=== PATIENT | male | born 1940 | race Caucasian/White ===

== ENCOUNTER 2022-10-15 16:44 | Inpatient (IN) | payer MEDICARE, OTHER ==
[~2022-10-15] VITALS: Ht 177.8 cm; Wt 82.7 kg
[~2022-10-15 16:44] MED LIST: ASPIRIN 81M81 MG/TA2 PO; COREG 6.256.25 MG/TA PO; DEMADEX 20MG20 M1 PO; FLOMAX 0.40.4 MG/CAP PO; GLUCOPHAGE500 MG/TAB PO; GLUCOTROL10 MG PO; IRON TABLETS325 MG PO; LIPITOR 40MG TA40 MG PO; MULTI-VITAMIN W1 TA1 PO; NORVASC 5MG5 MG/TAB PO; OCUVITE BLUE L1 EACH PO; PRINIVIL5 MG PO; PROCRIT 4,04 MU/VIAL SQ; SODIUM BICARBO650 MG PO; TIROSINT75 MC1 PO; VOLTAREN 75 DR75 MG PO; ZYLOPRIM 300MG300 MG PO
[2022-10-15 17:06] LABS: BASO # 0.1 K/mm3 (0.0-0.2); BASO % 1.8 % (0.0-2.0); EOS # 0.1 K/mm3 (0.0-0.7); EOS % 1.7 % (0.0-4.0); GRAN # 5.3 K/mm3 (1.4-6.5); GRAN % 72.6 % (42.2-75.2); LYMPH # 1.1 K/mm3 (1.2-3.4); LYMPH % 14.5 % (20.0-51.0); MEAN CELL VOLUME 98 fl (80.0-100.0); MEAN CORPUSCULAR HGB CONC 32 g/dl (33.0-37.0); MEAN PLATELET VOLUME 11.7 fl (7.4-10.4); MONO # 0.6 K/mm3 (0.1-0.6); MONO % 8.7 % (1.7-9.3); PLATELET COUNT 267 K/mm3 (130-400); RED BLOOD COUNT 3.05 M/mm3 (4.20-5.60); REDCELL DISTRIBUTION WIDTH-CV 16.2 % (11.5-14.5)
[2022-10-15 17:07] LABS: HEMOGLOBIN 9.7 g/dl (13.5-18.0); MEAN CORPUSCULAR HEMOGLOBIN 32 pg (27-31)
[2022-10-15 17:13] LABS: INR 1.4 (0.8-3.0); PROTHROMBIN TIME 15.8 SECONDS (9.7-12.8)
[2022-10-15 17:15] LABS: PARTIAL THROMBOPLASTIN TIME 34.2 SECONDS (26.0-37.0)
[2022-10-15 17:25] LABS: ALBUMIN 3.7 gm/dL (3.4-4.8); CALCIUM 9.4 mg/dL (8.4-10.2); CREATININE, serum 1.71 mg/dL (0.72-1.25); POTASSIUM 4.2 mmol/L (3.5-4.5); TOTAL PROTEIN 7.2 gm/dL (6.2-8.1)
[2022-10-15 17:31] LABS: TROPONIN-I 0.015 ng/mL (0.00-0.033)
[2022-10-15] MEDS ORDERED: NATURAL IRON65 MG (19:09)
[2022-10-15] MEDS ORDERED: GLUCOTROL10 MG PO (19:10)
[2022-10-15] MEDS ORDERED: GLUCOPHAGE1000 MG PO (19:12)
[2022-10-15 19:41] VITALS: BP 144/104; PULSE 95; TEMP 97.5
[2022-10-16] VITALS (9 sets, daily range): BP systolic 104–146; BP diastolic 46–73; PULSE 56–77; TEMP 97.5–98
[2022-10-16 07:01] LABS: BASO # 0.1 K/mm3 (0.0-0.2); BASO % 2.1 % (0.0-2.0); EOS # 0.2 K/mm3 (0.0-0.7); GRAN # 4.1 K/mm3 (1.4-6.5); GRAN % 67.7 % (42.2-75.2); LYMPH # 1.1 K/mm3 (1.2-3.4); LYMPH % 17.7 % (20.0-51.0); MEAN CELL VOLUME 94 fl (80.0-100.0); MEAN CORPUSCULAR HGB CONC 34 g/dl (33.0-37.0); MEAN PLATELET VOLUME 11.9 fl (7.4-10.4); MONO # 0.5 K/mm3 (0.1-0.6); MONO % 8.7 % (1.7-9.3); PLATELET COUNT 268 K/mm3 (130-400); RED BLOOD COUNT 2.91 M/mm3 (4.20-5.60); REDCELL DISTRIBUTION WIDTH-CV 15.8 % (11.5-14.5)
[2022-10-16 07:03] LABS: HEMATOCRIT 27.2 % (42.0-52.0); HEMOGLOBIN 9.3 g/dl (13.5-18.0); MEAN CORPUSCULAR HEMOGLOBIN 32 pg (27-31)
[2022-10-16 07:14] LABS: CREATININE, serum 1.52 mg/dL (0.72-1.25); MAGNESIUM 1.7 mg/dL (1.6-2.6); POTASSIUM 3.8 mmol/L (3.5-4.5)
--- NOTE | 2022-10-16 09:57 | NUR ---
Initial visit; Patient thanked Automotive Assembler for looking in on him and offering God's blessings.
--- NOTE | 2022-10-16 14:27 | NUR ---
patient arrived to photographic laboratory technician,expressing concerns of low blood sugar, patient was diaphoretic, hot and clammy. BG taken with results of 37. Dr. Ba notified, with TORB to give an amp of D50. Followed by D5W1/5NS for fluids to be hung at 100ml\hr for procedure, with recheck on BG in 15 min. Recheck was 151. Patient remained alert and oriented X4, resting in bed peacefully, and returned to normal status.
--- NOTE | 2022-10-16 14:41 | NUR ---
ALANA met with the patient's , Maliha (ph#[phone]), and daughter, Keerthi, to discuss discharge plan. The patient was having a cardioversion. The patient lives in [place] with his . Maliha reports that the patient is independent with ADLs and does not have any DME. He still works part-time. The patient's PCP is Dr. Anirudh Bolivar and he obtains his meds from [facility]. The patient does not have a DPOA-HC. Maliha shares that they have the forms at home and plan to work on them. Maliha reports that the plan is for the patient to return back home with her upon discharge. No additional needs at this time. *Discharge plan: home with *
--- NOTE | 2022-10-16 16:20 | NUR ---
SEE MERGE FOR ALL MEDICATIONS, INTERVENTIONS AND VITALS, GLUCOSE CHECKS.
--- NOTE | 2022-10-17 00:24 | NUR ---
10/16 2099 PT. IS DENYING PAIN IN NEW PACEMAKER SITE, WAS SLEEPING WHEN I ENTERED THE ROOM, INFORMED HIM THAT I CAME TO GIVE HIM HIS NIGHT TIME MEDS, THAT BESIDES FOR HIS PILLS I HAD 8 UNITS OF INSULIN TO GIVE HIM, AND THAT I ALSO HAD ANOTHER SMALL DOSE OF IV LASIX. PT. WAS WORRIED THAT MUCH INSULIN WOULD DROP HIS BLOOD SUGAR TO LOW, WOULD ONLY LET ME GIVE HIM 6 UNITS, AND ASKED FOR A SNACK JUST IN CASE, ALSO ASKED WHAT HIS WEIGHT WAS, I CHECKED THE BED SCALE, WHICH SAID 181.5 LBS, PT. SAID HIS WEIGHT WAS BACK TO NORMAL AND THAT HE DIDN'T NEED THE LASIX ANYMORE, I TRIED TO EXPLAIN THAT WE ARE USING THE LASIX TO TREAT HIS OTHER SYMPTOMS WELL, AND NOT JUST HIS WEIGHT FROM EXTRA FLUID, BUT THAT HIS BNP WAS ELEVATED, AND HE HAD BEEN SOB AND IS STILL REQUIRING OXYGEN, PT. STATED UNDERSTANDING, PT. ASKED IF HE WAS ABLE TO GET OUT OF BED TO USE THE BATHROOM, HE HAD BEEN DROWSY EARLIER AND THE NURSE ONLY LET HIM USE URINAL AFTER HAVING A PACEMAKER PLACED TODAY, I STATED THAT IT WAS OK FOR HIM TO ACTUALLY GET UP TO USE THE BATHROOM, BUT THAT AT LEAST OVERNIGHT HE WOULD NEED TO CALL FOR HELP TO GET UP TO THE BATHROOM SINCE HE HAD JUST HAD A PROCEDURE, BUT THAT IF HE WAS STABLE HE WOULD MOST LIKELY BE ABLE TO GO BACK TO BEING INDEPENDANT TOMORROW.
[2022-10-17 04:07] VITALS: BP 131/59; PULSE 69; TEMP 98.2
[2022-10-17 07:17] LABS: MAGNESIUM 1.7 mg/dL (1.6-2.6)
[2022-10-17 07:26] VITALS: BP 138/64; PULSE 73; TEMP 97.9
--- NOTE | 2022-10-17 07:39 | NUR ---
Report received from the night nurse, Jaci, and resume care of patient. Received a report from another nurse stating that ICU nurse who monitors telemonitor states that patient's HR is 130. I checked on patient and wasn't in any distress, no shortness of air, and Tele monitor at the nurses' station read, 84. Will continue to monitor patient.
[2022-10-17 07:42] LABS: TSH w REFLEX 1.977 uIU/mL (0.350-4.940)
[2022-10-17 09:06] LABS: CALCIUM 8.8 mg/dL (8.4-10.2); CREATININE, serum 1.35 mg/dL (0.72-1.25); POTASSIUM 3.7 mmol/L (3.5-4.5)
--- NOTE | 2022-10-17 10:30 | NUR ---
Patient resting in bed alert and oriented x4. Dressing at left upper chest intact. Sling in place for paitent not stretch arm due pacemaker placement. Patient denies of shortness of breath, dizziness,lightheadedness. Patient remains afib from tele monitor recording.. Family at the bedside and call blanchard within reach.
[2022-10-17 11:37] VITALS: BP 110/52; PULSE 72; TEMP 97.5
[2022-10-17 16:24] VITALS: BP 124/59; PULSE 65; TEMP 97.6
[2022-10-17 19:34] VITALS: BP 111/44; PULSE 70; TEMP 97.7
[2022-10-17 23:45] VITALS: BP 116/53; PULSE 65; TEMP 98.2
[2022-10-18 03:32] VITALS: BP 108/64; PULSE 72; TEMP 97.2
[2022-10-18 07:18] VITALS: BP 113/52; PULSE 76; TEMP 99.4
[2022-10-18] MEDS ORDERED: CEPHALEXIN500 M1 PO (08:20)
[2022-10-18] MEDS ORDERED: PACERONE200 MG PO (08:24)
[2022-10-18] MEDS ORDERED: DEMADEX 20MG20 M1 PO (08:25)
--- NOTE | 2022-10-18 09:24 | NUR ---
The patient is to discharge back home with his today, 10/18. An exercise oximetry was ordered. RT notified SW that the patient did not qualify for oxygen. SW met with the patient and presented and read the IM form outloud to him. The patient verbalized understanding and agreement to discharge today. He signed the form and declined a copy. He had no questions or concerns for SW. No additional needs at this time.
--- NOTE | 2022-10-18 09:37 | NUR ---
Follow-up Visit; Patient dressed and ready to go home, stating he is doing well and just waiting to get his dismissal papers. Patient very pleasant person to visit with. Body Shop Technician wished him well.
--- NOTE | 2022-10-18 10:37 | NUR ---
DISCHARGE INSTRUCTIONS REVIEWED WITH PT AND HIS . ALL QUESTIONS AND CONCERNS ANSWERED. DR. BENAVIDES TO SEE PT PRIOR TO DISCHARGE TO ADJUST PACEMAKER, EKG OBTAINED AFTER ADJUSTMENT. INT IV WAS DISCONTINUED, CATHETER INTACT. ALL PT BELONGINGS TAKEN WITH PT. PT ESCORTED OUT VIA WHEELCHAIR WITH PCT AND PT'S .
== END 2022-10-18 10:40 | disposition home or self-care (01) | DRG 242 ==
LOC: COL.ER 16:44 → MEDICAL 18:40
PROVIDERS: Emergency Medicine; Internal Medicine; Student in an Organized Health Care Education/Training Program; ADMIT Internal Medicine
PROC: 0JH606Z Insertion of Pacemaker, Dual Chamber into Chest Subcutaneous Tissue and Fascia, Open Approach (ICD-10-PCS; principal; 2022-10-16)
PROC: 02H63JZ Insertion of Pacemaker Lead into Right Atrium, Percutaneous Approach (ICD-10-PCS; 2022-10-16)
PROC: 02HK3JZ Insertion of Pacemaker Lead into Right Ventricle, Percutaneous Approach (ICD-10-PCS; 2022-10-16)
PROC: 5A2204Z Restoration of Cardiac Rhythm, Single (ICD-10-PCS; 2022-10-16)
DX: I50.23 Acute on chronic systolic (congestive) heart failure (principal); J96.01 Acute respiratory failure with hypoxia; N17.9 Acute kidney failure, unspecified; Z79.82 Long term (current) use of aspirin; Z87.891 Personal history of nicotine dependence; Z95.1 Presence of aortocoronary bypass graft; I25.10 Atherosclerotic heart disease of native coronary artery without angina pectoris; N18.30 Chronic kidney disease, stage 3 unspecified; I48.91 Unspecified atrial fibrillation; E11.22 Type 2 diabetes mellitus with diabetic chronic kidney disease; Z79.84 Long term (current) use of oral hypoglycemic drugs; Z79.899 Other long term (current) drug therapy; E03.9 Hypothyroidism, unspecified; D63.1 Anemia in chronic kidney disease
CPT/HCPCS: C1769; C1785; C1894; C1898; J0690; J1815; J1940; J2250; J2704; J3010; J3475; J7030; Q9967